=== PATIENT | male | born 1975 | race Caucasian/White ===

== ENCOUNTER 2019-04-09 11:17 | Inpatient (IN) | payer OTHER ==
[2019-04-09 11:55] VITALS: BMI 25.5
--- NOTE | 2019-04-09 12:31 | HP ---
CIWA Score Nausea/Vomitin Muscle Tremors: 2 Anxiety: 2 Agitation: 1-Slight > Activity Paroxysmal Sweats: 2 Orientation: 1-Uncertain about Date Tacttile Disturbances: 1-Very Mild Itch/Numbness Auditory Disturbances: 1-Very Mild Visual Disturbances: 1-Very Mild Sensitivity Headache: 2-Mild CIWA-Ar Total Score: 15 - Admission Criteria OASAS Guidelines: Admission for Medically Managed Detox: Requires at least one of the followin. CIWA greater than 12 2. Seizures within the past 24 hours 3. Delirium tremens within the past 24 hours 4. Hallucinations within the past 24 hours 5. Acute intervention needed for co occurring medical disorder 6. Acute intervention needed for co occurring psychiatric disorder 7. Severe withdrawal that cannot be handled at a lower level of care (continued vomiting, continued diarrhea, abnormal vital signs) requiring intravenous medication and/or fluids 8. Admission ROS S - HPI Chief Complaint: Withdrawal symptoms Allergies/Adverse Reactions: Allergies Allergy/AdvReac Type Severity Reaction Status Date / Time No Known Allergies Allergy Verified 04/09/19 11:37 History of Present Illness: 44 y.o. man with an extensive history of alcohol, marijuana and cocaine dependence is here seeking his first admission to detox Exam Limitations: No Limitations - Ebola screening Have you traveled outside of the country in the last 21 days: No (N) Have you had contact with anyone from an Ebola affected area: No Do you have a fever: No - Review of Systems Constitutional: Chills, Diaphoresis, Loss of Appetite, Unintentional Wgt. Loss EENT: reports: Blurred Vision, Double Vision, Tearing, Nose Congestion Respiratory: reports: Shortness of Breath Cardiac: reports: Irregular Heart Rate (Pt. reports he had a catheter ablation 3 months ago to treat an arrhythmia.), Syncope (2-3 months d/t ETOH abuse) GI: reports: Diarrhea, Abdominal cramping : reports: No Symptoms Reported Musculoskeletal: reports: Back Pain Integumentary: reports: No Symptoms Reported Neuro: reports: Tremors Endocrine: reports: No Symptoms Reported Hematology: reports: No Symptoms Reported Psychiatric: reports: Anxious, Depressed Other Systems: Reviewed and Negative Patient History - Patient Medical History Hx Anemia: No Hx Asthma: No Hx Chronic Obstructive Pulmonary Disease (COPD): No Hx Cancer: No Hx Cardiac Disorders: Yes (H/o Arrhythmia) Hx Congestive Heart Failure: No Hx Hypertension: Yes (On meds ) Hx Hypercholesterolemia: No Hx Pacemaker: No HX Cerebrovascular Accident: No Hx Seizures: No Hx Dementia: No Hx Diabetes: No Hx Gastrointestinal Disorders: No Hx Liver Disease: No Hx Genitourinary Disorders: No Hx Sexually Transmitted Disorders: No Hx Renal Disease (ESRD): No Hx Thyroid Disease: No Hx Human Immunodeficiency Virus (HIV): No Hx Hepatitis C: No Hx Depression: Yes Hx Suicide Attempt: No Hx Bipolar Disorder: No Hx Schizophrenia: No - Patient Surgical History Past Surgical History: Yes Hx Abdominal Surgery: Yes (Hernia repair) Anesthesia Reaction: No - PPD History Previous Implant?: Yes Documented Results: Negative w/o proof PPD to be Administered?: Yes - Reproductive History Patient is a Female of Child Bearing Age (11 -55 yrs old): No - Smoking Cessation Smoking history: Current every day smoker Have you smoked in the past 12 months: Yes Aproximately how many cigarettes per day: 6 Hx Chewing Tobacco Use: No Initiated information on smoking cessation: Yes 'Breaking Loose' booklet given: 04/09/19 - Substance & Tx. History Hx Alcohol Use: Yes Hx Substance Use: Yes Substance Use Type: Alcohol, Cocaine, Marijuana Hx Substance Use Treatment: No - Substances abused Alcohol Substance route: Oral Frequency: Daily Amount used: 10-12 NIPS Barcardi Age of first use: 40 Date of last use: 04/09/19 Marijuana/Hashish Substance route: Smoking Frequency: Daily Amount used: 8 bags Age of first use: 14 Date of last use: 04/07/19 Cocaine Substance route: Inhalation Frequency: Daily Amount used: 40 bags Age of first use: 43 Date of last use: 04/08/19 Family Disease History - Family Disease History Family Disease History: Other: Father (ETOH DEPENDENCE ), Mother (COMITTED SUICIDE WHEN PT. WAS 11Y.O. ) Admission Physical Exam BHS - Vital Signs Vital Signs: Vital Signs - 24 hr 04/09/19 11:46 Temperature 98.1 F Pulse Rate 94 H Respiratory 16 Rate Blood Pressure 189/119 H - Physical General Appearance: Yes: Tremorous, Irritable, Anxious HEENTM: Yes: Hearing grossly Normal, Normocephalic, Normal Voice Respiratory: Yes: Chest Non-Tender, Lungs Clear, Normal Breath Sounds, No Respiratory Distress, No Accessory Muscle Use Neck: Yes: Within Normal Limits Breast: Yes: Breast Exam Deferred Cardiology: Yes: Regular Rhythm, Regular Rate Abdominal: Yes: Normal Bowel Sounds, Non Tender, Flat Genitourinary: Yes: Other (No complaints reported) Back: Yes: Normal Inspection Musculoskeletal: Yes: full range of Motion, Gait Steady, Pelvis Stable Extremities: Yes: Normal Capillary Refill, Normal Inspection, Normal Range of Motion, Non-Tender Neurological: Yes: Alert, Motor Strength 5/5, Normal Mood/Affect, Normal Response Integumentary: Yes: Normal Color, Dry, Warm Lymphatic: Yes: Within Normal Limits - Diagnostic (1) Alcohol dependence with uncomplicated withdrawal Current Visit: Yes Status: Chronic (2) Nicotine dependence Current Visit: Yes Status: Chronic (3) HTN (hypertension) Current Visit: Yes Status: Chronic (4) Syncope Current Visit: Yes Status: Chronic (5) History of cardiac arrhythmia Current Visit: Yes Status: Chronic Cleared for Admission S - Detox or Rehab [facility] Level of Care: Medically Managed Detox Regimen/Protocol: Librium Breathalyzer - Breathalyzer Breathalyzer: 0.119 Urine Drug Screen - Test Device Lot number: [id number] Expiration date: 01/14/21 - Control Is test valid?: Yes - Results Drug screen NEGATIVE: No Urine drug screen results: MARIAN-Cocaine, BZO-Benzodiazepines Inpatient Rehab Admission - Rehab Decision to Admit Inpatient rehab admission?: No
[2019-04-09] MEDS ORDERED: MENTHOL/PHENOL 1 EACH UD MM PRN (12:40)
[2019-04-09] MEDS ORDERED: IBUPROFEN 400 MG TABLET (FP) PO PRN (12:40)
[2019-04-09] MEDS ORDERED: MAGNESIUM CITRATE 300 ML BOTTLE PO PRN (12:40)
[2019-04-09] MEDS ORDERED: ACETAMINOPHEN 325 MG TABLET (FP) PO PRN ×2 (12:40)
[2019-04-09] MEDS ORDERED: MAGNESIUM HYDROX 2400MG/30ML ORAL SUSPENSION 30 ML CUP PO PRN (12:40)
[2019-04-09] MEDS ORDERED: chlordiazePOXIDE HCL 25 MG CAPSULE PO PRN (12:40)
[2019-04-09] MEDS ORDERED: MAG HYDROX/AL HYDROX/SIMETH 30 ML UNIT-DOSE CUP PO PRN (12:40)
[2019-04-09] MEDS ORDERED: BISMUTH SUBSALICYLATE 524 MG/30 ML UD PO PRN (12:40)
[2019-04-09] MEDS ORDERED: NICOTINE POLACRILEX 2 MG GUM BUC PRN (12:40)
[2019-04-09] MEDS ORDERED: METHOCARBAMOL 500 MG TABLET PO PRN (12:40)
[2019-04-09] MEDS ORDERED: hydrOXYzine PAMOATE 25 MG CAPSULE (FP) PO PRN (12:40)
[2019-04-09] MEDS: LISINOPRIL 20 MG TABLET (FP) PO SCH (14:45)
[2019-04-09] MEDS: amLODIPine BESYLATE 10 MG TABLET (FP) PO SCH (14:45)
[2019-04-09] MEDS: chlordiazePOXIDE HCL 25 MG CAPSULE PO SCH ×2 (17:53→22:20)
[2019-04-09] MEDS ORDERED: cloNIDine HCL 0.1 MG TABLET PO ONE (21:47)
[2019-04-09] MEDS: THIAMINE HCL 100 MG TABLET (FP) PO SCH (22:20)
[2019-04-09] MEDS: MELATONIN 5 MG TABLETS PO PRN (22:21)
[2019-04-10] MEDS: chlordiazePOXIDE HCL 25 MG CAPSULE PO SCH ×4 (05:55→22:18)
--- NOTE | 2019-04-10 09:28 | CONSULT ---
[facility] Psychiatric Consult - Data Date of interview: 04/10/19 Admission source: Friend Identifying data: Mr Allen is a 44 years old male living as , father of 3 children, employed in maintenance, domiciled seeking detox treatment for alcohol, cocaine and cannabis Substance Abuse History: Reports history of heroin, cocaine and marijuana use. Refer to addiction counselor's summary for further information Medical History: Significant for hypertension , history of arrhythmia, kidney stones and bilateral inguinal hernia repair. Smokes 6 cigarettes daily Psychiatric History: Reports that she started seeeing a therapist for depression at age 42-43. He said that that therapist referred him to a psychiatrist who prescribed medication. Told insurance underwriter sales that he never took that medication and did not follow up. As he stopped seeing that that therapist, he started feeling anxious with symptoms like difficukty to breathe, palpitation. For that he has been prescribed Lorazepam 0.5 mg/day by Cammie Beard MD, his primary care physician. This is confirmed by verification of external medication history from [facility] where scripts for 14 days supply of Lorazepm 0.5 mg/day prescribed by Dr Beard was filled on 04/07/19. Denies previous psychiatric hospitalization or suicidal attempt. At present, reports feeling anxious and sleeping poorly Physical/Sexual Abuse/Trauma History: Denies history of emotional, physical or sexual abuse as wel as DV relationship. No service Additional Comment: Reports history of a few previous arrests for misdemeanor on charged of drinking in public, urinatin in public Mental Status Exam - Mental Status Exam Alert and Oriented to: Time, Person Cognitive Function: Fair Patient Appearance: Well Groomed Mood: Anxious Affect: Appropriate Patient Behavior: Cooperative Speech Pattern: Clear Voice Loudness: Normal Thought Process: Intact, Goal Oriented Thought Disorder: Not Present Hallucinations: Denies Suicidal Ideation: Denies Homicidal Ideation: Denies Insight/Judgement: Poor Sleep: Poorly Appetite: Good Muscle strength/Tone: Normal Gait/Station: Normal Psychiatric Findings - Problem List ([place] 1, 2,3) (1) Anxiety disorder Current Visit: Yes Status: Chronic (2) Panic disorder Current Visit: Yes Status: Ruled-out (3) Substance-induced anxiety disorder Current Visit: Yes Status: Acute (4) Substance-induced sleep disorder Current Visit: Yes Status: Acute (5) Alcohol dependence with uncomplicated withdrawal Current Visit: Yes Status: Acute (6) Cocaine dependence, uncomplicated Current Visit: Yes Status: Acute (7) Cannabis dependence Current Visit: Yes Status: Acute (8) Nicotine dependence Current Visit: Yes Status: Chronic (9) HTN (hypertension) Current Visit: Yes Status: Chronic (10) History of cardiac arrhythmia Current Visit: Yes Status: Resolved - Initial Treatment Plan Initial Treatment Plan: 1) Start Melatonin 5 mg po HS prn for insomia. 2) Continue inpatient detoxification
[2019-04-10 09:32] LABS: HEMATOCRIT 38.7 % (35.4-49); HEMOGLOBIN 13.1 GM/dL (11.7-16.9); MCH 33.2 pg (25.7-33.7); MCHC 33.9 g/dl (32.0-35.9); MEAN CELL VOLUME 97.9 fl (80-96); PLATELET COUNT 275 K/MM3 (134-434); RBC 3.95 M/mm3 (4.00-5.60); RDW 14.3 % (11.9-15.9); WHITE BLOOD COUNT 6.5 K/mm3 (4.0-10.0)
[2019-04-10 09:37] LABS: ALBUMIN 3.6 g/dl (3.4-5.0); BILIRUBIN,TOTAL 0.6 mg/dL (0.2-1); BLOOD UREA NITROGEN 10.1 mg/dL (7-18); CALCIUM 9.4 mg/dL (8.5-10.1); CREATININE 1.1 mg/dL (0.55-1.3); POTASSIUM 4.1 mmol/L (3.5-5.1); TOT PROT 6.3 g/dl (6.4-8.2)
[2019-04-10] MEDS: PRENATAL VITAMINS W/ FOLIC ACID TABLET (FP) PO SCH (10:28)
[2019-04-10] MEDS: amLODIPine BESYLATE 10 MG TABLET (FP) PO SCH (10:28)
[2019-04-10] MEDS: LISINOPRIL 20 MG TABLET (FP) PO SCH (10:28)
[2019-04-10] MEDS: NICOTINE 14 MG/24 HOURS TOPICAL PATCH TD SCH (10:30)
--- NOTE | 2019-04-10 11:22 | PN ---
[facility] CIWA - CIWA Score Nausea/Vomitin-Mild Nausea/No Vomiting Muscle Tremors: 4-Moderate,w/Arms Extend Anxiety: 3 Agitation: 3 Paroxysmal Sweats: 2 Orientation: 0-Oriented Tacttile Disturbances: 0-None Auditory Disturbances: 0-None Visual Disturbances: 0-None Headache: 0-None Present CIWA-Ar Total Score: 13 S Progress Note (SOAP) Subjective: 44 years old male admitted on 04/09/19 for acute alcohol withdrawal sx management tolerate librium detox regimen well tolerate food and fluid well ambulating on hallway seen by psychiatrist no new treatment Objective: 04/10/19 11:21 Vital Signs Temperature 97.3 F L 04/10/19 09:20 Pulse Rate 62 04/10/19 09:20 Respiratory Rate 18 04/10/19 09:20 Blood Pressure 137/98 04/10/19 09:20 O2 Sat by Pulse Oximetry (%) Laboratory Last Values WBC 6.5 K/mm3 (4.0-10.0) 04/10/19 07:45 RBC 3.95 M/mm3 (4.00-5.60) L 04/10/19 07:45 Hgb 13.1 GM/dL (11.7-16.9) 04/10/19 07:45 Hct 38.7 % (35.4-49) 04/10/19 07:45 MCV 97.9 fl (80-96) H 04/10/19 07:45 MCH 33.2 pg (25.7-33.7) 04/10/19 07:45 MCHC 33.9 g/dl (32.0-35.9) 04/10/19 07:45 RDW 14.3 % (11.9-15.9) 04/10/19 07:45 Plt Count 275 K/MM3 (134-434) 04/10/19 07:45 MPV 9.0 fl (7.5-11.1) 04/10/19 07:45 Sodium 143 mmol/L (136-145) 04/10/19 07:45 Potassium 4.1 mmol/L (3.5-5.1) 04/10/19 07:45 Chloride 106 mmol/L (98-107) 04/10/19 07:45 Carbon Dioxide 33 mmol/L (21-32) H 04/10/19 07:45 Anion Gap 5 MMOL/L (8-16) L 04/10/19 07:45 BUN 10.1 mg/dL (7-18) 04/10/19 07:45 Creatinine 1.1 mg/dL (0.55-1.3) 04/10/19 07:45 Est GFR (CKD-EPI)AfAm 93.47 04/10/19 07:45 Est GFR (CKD-EPI)NonAf 80.64 04/10/19 07:45 Random Glucose 90 mg/dL (74-106) 04/10/19 07:45 Calcium 9.4 mg/dL (8.5-10.1) 04/10/19 07:45 Total Bilirubin 0.6 mg/dL (0.2-1) 04/10/19 07:45 AST 29 U/L (15-37) 04/10/19 07:45 ALT 35 U/L (13-61) 04/10/19 07:45 Alkaline Phosphatase 73 U/L (45-117) 04/10/19 07:45 Total Protein 6.3 g/dl (6.4-8.2) L 04/10/19 07:45 Albumin 3.6 g/dl (3.4-5.0) 04/10/19 07:45 lab noted Assessment: 04/10/19 11:21 alcohol withdrawal sx Plan: continue librium detox regimen
[2019-04-10] MEDS: THIAMINE HCL 100 MG TABLET (FP) PO SCH (22:17)
[2019-04-10] MEDS: MELATONIN 5 MG TABLETS PO PRN (22:18)
[2019-04-11] MEDS: chlordiazePOXIDE HCL 25 MG CAPSULE PO SCH ×4 (05:09→22:26)
--- NOTE | 2019-04-11 09:37 | PN ---
[facility] CIWA - CIWA Score Nausea/Vomitin-Mild Nausea/No Vomiting Muscle Tremors: 3 Anxiety: 2 Agitation: 2 Paroxysmal Sweats: 2 Orientation: 0-Oriented Tacttile Disturbances: 0-None Auditory Disturbances: 0-None Visual Disturbances: 1-Very Mild Sensitivity Headache: 0-None Present CIWA-Ar Total Score: 11 [facility] Progress Note (SOAP) Subjective: doing well with librium detox regimen less tremor but feeling tired prefers to resting on bed less anxious Objective: 04/11/19 09:35 Vital Signs Temperature 97.6 F 04/11/19 09:21 Pulse Rate 65 04/11/19 09:21 Respiratory Rate 18 04/11/19 09:21 Blood Pressure 126/90 04/11/19 09:21 O2 Sat by Pulse Oximetry (%) Laboratory Last Values WBC 6.5 K/mm3 (4.0-10.0) 04/10/19 07:45 RBC 3.95 M/mm3 (4.00-5.60) L 04/10/19 07:45 Hgb 13.1 GM/dL (11.7-16.9) 04/10/19 07:45 Hct 38.7 % (35.4-49) 04/10/19 07:45 MCV 97.9 fl (80-96) H 04/10/19 07:45 MCH 33.2 pg (25.7-33.7) 04/10/19 07:45 MCHC 33.9 g/dl (32.0-35.9) 04/10/19 07:45 RDW 14.3 % (11.9-15.9) 04/10/19 07:45 Plt Count 275 K/MM3 (134-434) 04/10/19 07:45 MPV 9.0 fl (7.5-11.1) 04/10/19 07:45 Sodium 143 mmol/L (136-145) 04/10/19 07:45 Potassium 4.1 mmol/L (3.5-5.1) 04/10/19 07:45 Chloride 106 mmol/L (98-107) 04/10/19 07:45 Carbon Dioxide 33 mmol/L (21-32) H 04/10/19 07:45 Anion Gap 5 MMOL/L (8-16) L 04/10/19 07:45 BUN 10.1 mg/dL (7-18) 04/10/19 07:45 Creatinine 1.1 mg/dL (0.55-1.3) 04/10/19 07:45 Est GFR (CKD-EPI)AfAm 93.47 04/10/19 07:45 Est GFR (CKD-EPI)NonAf 80.64 04/10/19 07:45 Random Glucose 90 mg/dL (74-106) 04/10/19 07:45 Calcium 9.4 mg/dL (8.5-10.1) 04/10/19 07:45 Total Bilirubin 0.6 mg/dL (0.2-1) 04/10/19 07:45 AST 29 U/L (15-37) 04/10/19 07:45 ALT 35 U/L (13-61) 04/10/19 07:45 Alkaline Phosphatase 73 U/L (45-117) 04/10/19 07:45 Total Protein 6.3 g/dl (6.4-8.2) L 04/10/19 07:45 Albumin 3.6 g/dl (3.4-5.0) 04/10/19 07:45 RPR Titer Nonreactive (NONREACTIVE) 04/10/19 07:45 lab noted Assessment: 04/11/19 09:36 alcohol withdrawal sx alert oriented x 3 steady gait no wheezing abdominal soft Plan: continue librium detox regimen
[2019-04-11] MEDS: PRENATAL VITAMINS W/ FOLIC ACID TABLET (FP) PO SCH (10:03)
[2019-04-11] MEDS: LISINOPRIL 20 MG TABLET (FP) PO SCH (10:03)
[2019-04-11] MEDS: amLODIPine BESYLATE 10 MG TABLET (FP) PO SCH (10:03)
[2019-04-11] MEDS: NICOTINE 14 MG/24 HOURS TOPICAL PATCH TD SCH (10:04)
--- NOTE | 2019-04-11 13:02 | EKG ---
Test Reason : Blood Pressure : / mmHG Vent. Rate : 070 BPM Atrial Rate : 070 BPM P-R Int : 146 ms QRS Dur : 106 ms QT Int : 432 ms P-R-T Axes : 066 -44 042 degrees QTc Int : 466 ms NORMAL SINUS RHYTHM POSSIBLE LEFT ATRIAL ENLARGEMENT LEFT AXIS DEVIATION LEFT VENTRICULAR HYPERTROPHY ABNORMAL ECG NO PREVIOUS ECGS AVAILABLE Confirmed by IMAN NOE MD ([id number]) on 04/11/2019 1:02:05 PM Referred By: Confirmed By:IMAN NOE MD
[2019-04-11] MEDS: THIAMINE HCL 100 MG TABLET (FP) PO SCH (22:26)
[2019-04-11] MEDS: MELATONIN 5 MG TABLETS PO PRN (22:26)
[2019-04-12] MEDS ORDERED: chlordiazePOXIDE HCL 10 MG CAPSULE PO PRN
[2019-04-12] MEDS: chlordiazePOXIDE HCL 10 MG CAPSULE PO SCH ×4 (05:20→22:30)
[2019-04-12] MEDS: LISINOPRIL 20 MG TABLET (FP) PO SCH (10:25)
[2019-04-12] MEDS: amLODIPine BESYLATE 10 MG TABLET (FP) PO SCH (10:25)
[2019-04-12] MEDS: PRENATAL VITAMINS W/ FOLIC ACID TABLET (FP) PO SCH (10:25)
[2019-04-12] MEDS: NICOTINE 14 MG/24 HOURS TOPICAL PATCH TD SCH (10:27)
--- NOTE | 2019-04-12 12:51 | PN ---
[facility] CIWA - CIWA Score Nausea/Vomitin-No Nausea/No Vomiting Muscle Tremors: 2 Anxiety: 2 Agitation: 2 Paroxysmal Sweats: 1-Minimal Palms Moist Orientation: 0-Oriented Tacttile Disturbances: 0-None Auditory Disturbances: 0-None Visual Disturbances: 0-None Headache: 0-None Present CIWA-Ar Total Score: 7 S Progress Note (SOAP) Subjective: doing well with librium detox regimen less tremor mild anxiety ambulating on hallway social with peers in day room Objective: 04/12/19 12:52 Vital Signs Temperature 97.0 F L 04/12/19 09:24 Pulse Rate 68 04/12/19 09:24 Respiratory Rate 17 04/12/19 09:24 Blood Pressure 138/101 H 04/12/19 09:24 O2 Sat by Pulse Oximetry (%) Laboratory Last Values WBC 6.5 K/mm3 (4.0-10.0) 04/10/19 07:45 RBC 3.95 M/mm3 (4.00-5.60) L 04/10/19 07:45 Hgb 13.1 GM/dL (11.7-16.9) 04/10/19 07:45 Hct 38.7 % (35.4-49) 04/10/19 07:45 MCV 97.9 fl (80-96) H 04/10/19 07:45 MCH 33.2 pg (25.7-33.7) 04/10/19 07:45 MCHC 33.9 g/dl (32.0-35.9) 04/10/19 07:45 RDW 14.3 % (11.9-15.9) 04/10/19 07:45 Plt Count 275 K/MM3 (134-434) 04/10/19 07:45 MPV 9.0 fl (7.5-11.1) 04/10/19 07:45 Sodium 143 mmol/L (136-145) 04/10/19 07:45 Potassium 4.1 mmol/L (3.5-5.1) 04/10/19 07:45 Chloride 106 mmol/L (98-107) 04/10/19 07:45 Carbon Dioxide 33 mmol/L (21-32) H 04/10/19 07:45 Anion Gap 5 MMOL/L (8-16) L 04/10/19 07:45 BUN 10.1 mg/dL (7-18) 04/10/19 07:45 Creatinine 1.1 mg/dL (0.55-1.3) 04/10/19 07:45 Est GFR (CKD-EPI)AfAm 93.47 04/10/19 07:45 Est GFR (CKD-EPI)NonAf 80.64 04/10/19 07:45 Random Glucose 90 mg/dL (74-106) 04/10/19 07:45 Calcium 9.4 mg/dL (8.5-10.1) 04/10/19 07:45 Total Bilirubin 0.6 mg/dL (0.2-1) 04/10/19 07:45 AST 29 U/L (15-37) 04/10/19 07:45 ALT 35 U/L (13-61) 04/10/19 07:45 Alkaline Phosphatase 73 U/L (45-117) 04/10/19 07:45 Total Protein 6.3 g/dl (6.4-8.2) L 04/10/19 07:45 Albumin 3.6 g/dl (3.4-5.0) 04/10/19 07:45 RPR Titer Nonreactive (NONREACTIVE) 04/10/19 07:45 lab noted 04/12/19 12:53 patient agrees returning to primary care provider for antihypertensive adjustment strong recommend smoking cessation 04/12/19 12:58 Assessment: 04/12/19 12:58 alcohol withdrawal sx alert oriented x 3 04/12/19 13:04 speech clearly steady gait denies dizziness no shortness of breath Plan: continue librium detox regimen
[2019-04-12] MEDS: THIAMINE HCL 100 MG TABLET (FP) PO SCH (22:30)
[2019-04-12] MEDS: MELATONIN 5 MG TABLETS PO PRN (22:30)
[2019-04-13] MEDS: chlordiazePOXIDE HCL 10 MG CAPSULE PO SCH ×2 (05:52→16:58)
[2019-04-13] MEDS: NICOTINE 14 MG/24 HOURS TOPICAL PATCH TD SCH (10:06)
[2019-04-13] MEDS: amLODIPine BESYLATE 10 MG TABLET (FP) PO SCH (10:06)
[2019-04-13] MEDS: LISINOPRIL 20 MG TABLET (FP) PO SCH (10:06)
[2019-04-13] MEDS: PRENATAL VITAMINS W/ FOLIC ACID TABLET (FP) PO SCH (10:07)
--- NOTE | 2019-04-13 12:12 | PN ---
[facility] CIWA - CIWA Score Nausea/Vomitin-No Nausea/No Vomiting Muscle Tremors: 2 Anxiety: 2 Agitation: 1-Slight > Activity Paroxysmal Sweats: 1-Minimal Palms Moist Orientation: 0-Oriented Tacttile Disturbances: 0-None Auditory Disturbances: 0-None Visual Disturbances: 0-None Headache: 0-None Present CIWA-Ar Total Score: 6 S Progress Note (SOAP) Subjective: doing well with libirum detox regimen ambulating on hallway steady dislike the food served rather drinking ensure as nutritional supplement Objective: 04/13/19 12:07 Vital Signs Temperature 97.3 F L 04/13/19 09:16 Pulse Rate 65 04/13/19 09:16 Respiratory Rate 18 04/13/19 09:16 Blood Pressure 137/102 H 04/13/19 09:16 O2 Sat by Pulse Oximetry (%) 04/13/19 12:12 denies headache denies vision change, denies cervical paraspinal muscle ache, no dizziness no shortness of breath no ankles edema Laboratory Last Values WBC 6.5 K/mm3 (4.0-10.0) 04/10/19 07:45 RBC 3.95 M/mm3 (4.00-5.60) L 04/10/19 07:45 Hgb 13.1 GM/dL (11.7-16.9) 04/10/19 07:45 Hct 38.7 % (35.4-49) 04/10/19 07:45 MCV 97.9 fl (80-96) H 04/10/19 07:45 MCH 33.2 pg (25.7-33.7) 04/10/19 07:45 MCHC 33.9 g/dl (32.0-35.9) 04/10/19 07:45 RDW 14.3 % (11.9-15.9) 04/10/19 07:45 Plt Count 275 K/MM3 (134-434) 04/10/19 07:45 MPV 9.0 fl (7.5-11.1) 04/10/19 07:45 Sodium 143 mmol/L (136-145) 04/10/19 07:45 Potassium 4.1 mmol/L (3.5-5.1) 04/10/19 07:45 Chloride 106 mmol/L (98-107) 04/10/19 07:45 Carbon Dioxide 33 mmol/L (21-32) H 04/10/19 07:45 Anion Gap 5 MMOL/L (8-16) L 04/10/19 07:45 BUN 10.1 mg/dL (7-18) 04/10/19 07:45 Creatinine 1.1 mg/dL (0.55-1.3) 04/10/19 07:45 Est GFR (CKD-EPI)AfAm 93.47 04/10/19 07:45 Est GFR (CKD-EPI)NonAf 80.64 04/10/19 07:45 Random Glucose 90 mg/dL (74-106) 04/10/19 07:45 Calcium 9.4 mg/dL (8.5-10.1) 04/10/19 07:45 Total Bilirubin 0.6 mg/dL (0.2-1) 04/10/19 07:45 AST 29 U/L (15-37) 04/10/19 07:45 ALT 35 U/L (13-61) 04/10/19 07:45 Alkaline Phosphatase 73 U/L (45-117) 04/10/19 07:45 Total Protein 6.3 g/dl (6.4-8.2) L 04/10/19 07:45 Albumin 3.6 g/dl (3.4-5.0) 04/10/19 07:45 RPR Titer Nonreactive (NONREACTIVE) 04/10/19 07:45 lab noted Assessment: 04/13/19 12:13 alcohol withdrawal sx alert oriented x 3 speech clearly steady gait well-rested Plan: continue librium detox regimen
[2019-04-13 21:12] VITALS: PULSE 68
[2019-04-13] MEDS ORDERED: cloNIDine HCL 0.1 MG TABLET PO ONE (21:24)
[2019-04-13] MEDS: MELATONIN 5 MG TABLETS PO PRN (22:04)
[2019-04-13] MEDS: THIAMINE HCL 100 MG TABLET (FP) PO SCH (22:04)
[2019-04-14] MEDS ORDERED: chlordiazePOXIDE HCL 10 MG CAPSULE PO ONE (05:00)
[2019-04-14 06:14] VITALS: BP 122/83; TEMP 97.5
[2019-04-14] MEDS: NICOTINE 14 MG/24 HOURS TOPICAL PATCH TD SCH (10:12)
[2019-04-14] MEDS: PRENATAL VITAMINS W/ FOLIC ACID TABLET (FP) PO SCH (10:12)
[2019-04-14] MEDS: LISINOPRIL 20 MG TABLET (FP) PO SCH (10:12)
[2019-04-14] MEDS: amLODIPine BESYLATE 10 MG TABLET (FP) PO SCH (10:12)
--- NOTE | 2019-04-14 15:45 | DS ---
[facility] Detox Discharge Summary Admission Date: 04/09/19 Discharge Date: 04/14/19 - History Present History: Alcohol Dependence Additional Comments: 44 years old male first admission from [facility] was admitted on for alcohol withdrawal sx management doing well with librium detox regimen no complication through out the detox stay seen by psychiatrist no biomedical intervention alert oriented x 3 speech clearly goal directed brhavior steady gait no chest pain no shortness of breath abdomen soft no rebound tenderness skin warm and dry Pertinent Past History: hypertension and cigarette smoker bp well managed by amlodipin and lisinopril patient agrees to follow up with primary care provider with list of medication as well as lab report - Physical Exam Results Vital Signs: Vital Signs Temperature 97.5 F L 04/14/19 06:14 Pulse Rate 68 04/14/19 06:14 Respiratory Rate 18 04/14/19 06:14 Blood Pressure 122/83 04/14/19 06:14 O2 Sat by Pulse Oximetry (%) Pertinent Admission Physical Exam Findings: alcoh Laboratory Last Values WBC 6.5 K/mm3 (4.0-10.0) 04/10/19 07:45 RBC 3.95 M/mm3 (4.00-5.60) L 04/10/19 07:45 Hgb 13.1 GM/dL (11.7-16.9) 04/10/19 07:45 Hct 38.7 % (35.4-49) 04/10/19 07:45 MCV 97.9 fl (80-96) H 04/10/19 07:45 MCH 33.2 pg (25.7-33.7) 04/10/19 07:45 MCHC 33.9 g/dl (32.0-35.9) 04/10/19 07:45 RDW 14.3 % (11.9-15.9) 04/10/19 07:45 Plt Count 275 K/MM3 (134-434) 04/10/19 07:45 MPV 9.0 fl (7.5-11.1) 04/10/19 07:45 Sodium 143 mmol/L (136-145) 04/10/19 07:45 Potassium 4.1 mmol/L (3.5-5.1) 04/10/19 07:45 Chloride 106 mmol/L (98-107) 04/10/19 07:45 Carbon Dioxide 33 mmol/L (21-32) H 04/10/19 07:45 Anion Gap 5 MMOL/L (8-16) L 04/10/19 07:45 BUN 10.1 mg/dL (7-18) 04/10/19 07:45 Creatinine 1.1 mg/dL (0.55-1.3) 04/10/19 07:45 Est GFR (CKD-EPI)AfAm 93.47 04/10/19 07:45 Est GFR (CKD-EPI)NonAf 80.64 04/10/19 07:45 Random Glucose 90 mg/dL (74-106) 04/10/19 07:45 Calcium 9.4 mg/dL (8.5-10.1) 04/10/19 07:45 Total Bilirubin 0.6 mg/dL (0.2-1) 04/10/19 07:45 AST 29 U/L (15-37) 04/10/19 07:45 ALT 35 U/L (13-61) 04/10/19 07:45 Alkaline Phosphatase 73 U/L (45-117) 04/10/19 07:45 Total Protein 6.3 g/dl (6.4-8.2) L 04/10/19 07:45 Albumin 3.6 g/dl (3.4-5.0) 04/10/19 07:45 RPR Titer Nonreactive (NONREACTIVE) 04/10/19 07:45 TB Test (QFT) Nil 0.02 IU/mL (.) 04/10/19 08:00 TB Test (QFT) Mitogen >10.00 IU/mL (.) 04/10/19 08:00 TB Test (QFT) Antigen 0.02 IU/mL (.) 04/10/19 08:00 TB Test (QFT) Negative (Negative) 04/10/19 08:00 TB Positive Criteria (.) 04/10/19 08:00 lab noted alcohol withdrawal sx - Treatment Hospital Course: Detox Protocol Followed, Detoxed Safely, Responded well, Discharged Condition Good, Rehab Referral Accepted Patient has Accepted a Rehab Referral to: [facility] - Medication Discharge Medications: Ambulatory Orders Amlodipine Besylate 10 mg PO 04/09/19 LORazepam [Ativan] 0.5 mg PO DAILY 04/09/19 Lisinopril [Prinivil -] 40 mg PO DAILY 04/09/19 Amlodipine Besylate [Norvasc -] 10 mg PO DAILY #30 tablet 04/13/19 Lisinopril [Prinivil] 40 mg PO DAILY #30 tablet 04/13/19 - Diagnosis (1) Alcohol dependence with uncomplicated withdrawal Status: Acute (2) Nicotine dependence Status: Acute Qualifiers: Nicotine product type: cigarettes Substance use status: in withdrawal Qualified Code(s): F17.213 - Nicotine dependence, cigarettes, with withdrawal (3) HTN (hypertension) Status: Chronic Qualifiers: Hypertension type: unspecified Qualified Code(s): I10 - Essential (primary ) hypertension - AMA Did Patient Leave Against Medical Advice: No
== END 2019-04-14 12:43 | disposition other institution (70) | DRG 897 ==
LOC: YASAS 11:17 → Y3N 13:40
PROVIDERS: ADMIT Surgery; ATTEND Surgery
PROC: HZ2ZZZZ Detoxification Services for Substance Abuse Treatment (ICD-10-PCS; principal; 2019-04-09)
DX: F10.230 Alcohol dependence with withdrawal, uncomplicated (principal); F14.20 Cocaine dependence, uncomplicated; F19.280 Other psychoactive substance dependence with psychoactive substance-induced anxiety disorder; F19.282 Other psychoactive substance dependence with psychoactive substance-induced sleep disorder; F12.20 Cannabis dependence, uncomplicated; F17.213 Nicotine dependence, cigarettes, with withdrawal; F41.9 Anxiety disorder, unspecified; F41.0 Panic disorder [episodic paroxysmal anxiety]; I10 Essential (primary) hypertension; Z86.79 Personal history of other diseases of the circulatory system
CPT/HCPCS: 36415; 80053; 85027; 86480; 86593; 93005; 93010; J0735